=== PATIENT | female | born 1930 | race Caucasian/White ===

== ENCOUNTER 2016-10-06 06:07 | Emergency (ER) | payer MEDICARE, MEDICAID ==
[2016-10-06] MEDS ORDERED: OXYCODONE HCL 5 MG TABLET PO ONE (06:09)
--- NOTE | 2016-10-06 06:23 | EDPRACDOC ---
- General Information Chief Complaint: Shoulder Pain Stated Complaint: FALL Time Seen by Provider: 10/06/16 06:21 Home Medications: Home Medications Artificial Tears 15 ml OD BID 09/09/12 Aspirin [Porter Aspirin] 325 mg PO DAILY 09/09/12 Carbidopa/Levodopa [Sinemet 25-100 mg Tablet] 2 tab PO TID 09/09/12 Clopidogrel Bisulfate [Plavix] 75 mg PO DAILY 09/09/12 Dicyclomine HCl [Bentyl] 10 mg PO ACHS 09/09/12 Ergocalciferol (Vitamin D2) [Vitamin D2] 50,000 unit PO WEEKLY 09/09/12 Ferrous Sulfate [Albafort] 325 mg PO DAILY 09/09/12 Gabapentin Oral Solution [Neurontin] 250 mg PO BID 09/09/12 L. Acidophilus/Strept/LA P-Beni [Risaquad Capsules] 1 cap PO DAILY 09/09/12 Lansoprazole [Prevacid] 30 mg PO DAILY 09/09/12 Levothyroxine Sodium [Synthroid] 50 mcg PO DAILY 09/09/12 Multivitamin with Minerals [Multiple Vitamin] 1 tab PO DAILY 09/09/12 Polyethylene Glycol 3350 [Miralax] 17 gm PO DAILY 09/09/12 Simethicone [Gas-X] 80 mg PO ACHS 09/09/12 Simvastatin 40 mg PO HS 09/09/12 TOPIRAMATE (Anticonvulsant) [Topamax] 25 mg PO HS 09/09/12 Wheat Dextrin/Aspartame [Benefiber Sugar Free Powder] 267 gm PO DAILY(MARCELA) 09/09 Oxycodone HCl/Acetaminophen [Percocet 5-325 mg Tablet] 1 each PO Q4 #20 tablet 10/06/16 Allergies/Adverse Reactions: Allergies Allergy/AdvReac Type Severity Reaction Status Date / Time No Known Allergies Allergy Verified 10/06/16 06:45 - History of Present Illness HPI: PATIENT FELL STRIKING RIGHT SHOULDER. OBVIOUS DEFORMITY AND BRUISING AFTERWARD. 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 negative: Fever, Chills, Weakness, Fatigue, Loss of Appetite Eyes: No Symptoms Reported. negative: Redness, Blurred Vision, Double Vision, Discharge, Pain, Light Sensitive, Photophobia Ears: No Symptoms Reported. negative: Pain, Hearing Loss, Drainage, Ear Pulling Throat: No Symptoms Reported. negative: Pain, Swelling Nose: No Symptoms Reported. negative: Congestion, Bleeding, Discharge, Injection, Swelling, Deformity, Ecchymosis, Tender, Abrasion, Laceration Mouth: No Symptoms Reported. negative: Pain, Drooling Respiratory: No Symptoms Reported. negative: Cough, Brassy Cough, Barky Cough, Shortness of Breath, Wheezing, Hemoptysis Cardiovascular: No Symptoms Reported. negative: Chest Pain, Palpitations, Syncope, Edema, Orthopnea, PND, Skin Mottling, Cyanosis Gastrointestinal: No Symptoms Reported. negative: Pain, Constipation, Nausea, Vomiting, Diarrhea, Melena, Formula Intolerance Genitourinary: No Symptoms Reported. negative: Dysuria, Hematuria, Frequency, Discharge, Bleeding, Testicular Pain, Neurological: No Symptoms Reported. negative: Headache, Dizziness, Seizure, Numbness, Weakness, Speech Difficulty, Gait Difficulty Musculoskeletal: Shoulder. negative: Arm, Ankle, Back, Chestwall, Elbow, Forearm, Femur, Foot, Hand, Hip, Knee, Leg, Neck, Pelvis, Ribs, Wrist Integumentary: No Symptoms Reported. negative: Itching, Rash, Bruising, Wound Allergic/Immunologic: No Symptoms Reported. negative: Hives, Itching Hematologic: No Symptoms Reported. negative: Lymphadenopathy, Easy Bruising, Easy Bleeding Endocrine: No Symptoms Reported. negative: Weight Gain, Weight Loss Psychiatric: No Symptoms Reported. negative: Anxiety, Depression, Hallucinations, Insomnia, Suicidal - Physical Exam Constitutional: Alert (Awake), Distress (MILD) Oriented to: Time, Person, Place Last recorded Vital Signs: Oxygen Pulse Oxygen Saturation O2 Device Oxygen Flow Rate Fraction of Inspired Oxygen ( FIO2) - HEENT Head: Other (FACIAL MASK CONSISTENT WITH PARKINSONS) Eye Exam: Normal (PERRL, EOMI, Sclera white) Oropharynx: Normal (Pharynx:Moist without exudate,Gums-no swelling) Tympanic Membrane: Normal ENT EAC: Normal TMJ: Normal Nose: No Symptoms Reported (septum midline) Neck: Normal (FROM, trachea at midline) - Respiratory/Cardiovascular Respiratory: Normal - CTA (BBS clear to auscultation without adventitious sounds ) Cardiovascular: Normal (RRR without murmur, gallop or rub) - GI Auscultation: Normal (NABS) Palpation: Normal (Soft,No rebound or guarding, non distended) Tenderness: Non tender Lima's Sign: Negative - Musculoskeletal Back: Normal (Non-Tender) Extremities: Normal (Normal tone, Pulses 2+ No cyanosis or edema, FROM) - Integumentary Skin: Normal, Warm, Dry Lymphatics: Normal (no adenopathy) - Neurologic Memory Impaired: Normal Motor Function: Normal (Normal tone, Pulses 2+ No cyanosis or edema, FROM) Cranial Nerve: Normal (CN II-X11 intact sensation, strength 5/5) Cerebellar: Normal Mood Description: Normal Perception: Normal ED Shoulder Problem Exam - Musculoskeletal Clavicle: Normal Shoulder: Swelling, Deformity, Limited ROM, Tender Arm: Normal Distal Function/Circulation: Normal Decision Time to Discharge: 07:55 - Departure Yes I personally saw and evaluated the patient. Disposition: Home Condition: Good Final Diagnosis: Falls Right humeral fracture Qualifiers: Encounter type: initial encounter Humerus Location: proximal Fracture type: closed Fracture morphology: other fracture Fracture alignment: displaced Qualified Code(s): S42.291A - Other displaced fracture of upper end of right humerus, initial encounter for closed fracture Head contusion Qualifiers: Encounter type: initial encounter Contusion of head detail: scalp Qualified Code(s): S00.03XA - Contusion of scalp, initial encounter Instructions: Arm Fracture in Adults (ED) Education/Counseling Given To: Patient Education/Counseling Given Regarding: Diagnosis, Treatment, Prognosis, Follow Up Referrals: Morena Robledo MD [Primary Care Provider] - One Week Vamsi Johnson DO [Staff Physician] - One Week Prescriptions: Oxycodone HCl/Acetaminophen [Percocet 5-325 mg Tablet] 1 each PO Q4 #20 tablet
[2016-10-06] MEDS ORDERED: HYDROmorphone 1 MG INJECTION IV ONE ×2 (06:36→08:12)
[2016-10-06 06:42] VITALS: BMI 23.7
--- NOTE | 2016-10-06 08:23 | DIRPT ---
CLINICAL DATA: Status post fall backward while dressing, with concern for head or cervical spine injury. Initial encounter. EXAM: CT HEAD WITHOUT CONTRAST CT CERVICAL SPINE WITHOUT CONTRAST TECHNIQUE: Multidetector CT imaging of the head and cervical spine was performed following the standard protocol without intravenous contrast. Multiplanar CT image reconstructions of the cervical spine were also generated. COMPARISON: CT of the head and cervical spine performed 12/15/2011, and MRI of the brain performed 07/03/2012 FINDINGS: CT HEAD FINDINGS There is no evidence of acute infarction, mass lesion, or intra- or extra-axial hemorrhage on CT. Prominence of the ventricles and sulci reflects mild cortical volume loss. Mild periventricular white matter change likely reflects small vessel ischemic microangiopathy. Small chronic lacunar infarcts are seen at the basal ganglia bilaterally. The brainstem and fourth ventricle are within normal limits. The cerebral hemispheres demonstrate grossly normal rachel-white differentiation. No mass effect or midline shift is seen. There is no evidence of fracture; visualized osseous structures are unremarkable in appearance. The orbits are within normal limits. There is mild partial opacification of the sphenoid sinus. The remaining paranasal sinuses and mastoid air cells are well-aerated. No significant soft tissue abnormalities are seen. CT CERVICAL SPINE FINDINGS There is no evidence of acute fracture or subluxation. Multilevel disc space narrowing is noted, with scattered anterior and posterior disc osteophyte complexes. There is mild grade 1 retrolisthesis of C4 on C5. Vertebral bodies demonstrate normal height. Prevertebral soft tissues are within normal limits. The thyroid gland is unremarkable in appearance. The visualized lung apices are clear. Dense calcification is noted at the carotid bifurcations bilaterally, with likely severe luminal narrowing on the right side. IMPRESSION: 1. No evidence of traumatic intracranial injury or fracture. 2. No evidence of fracture or subluxation along the cervical spine. 3. Mild cortical volume loss and scattered small vessel ischemic microangiopathy. 4. Small chronic lacunar infarcts at the basal ganglia bilaterally. 5. Mild degenerative change along the cervical spine. 6. Mild partial opacification of the sphenoid sinus. 7. Dense calcification at the carotid bifurcations bilaterally, with likely severe luminal narrowing on the right side. Carotid ultrasound would be helpful for further evaluation, when and as deemed clinically appropriate. Electronically Signed By: Jm Fisher M.D. On: 10/06/2016 08:21
--- NOTE | 2016-10-06 08:27 | DIRPT ---
CLINICAL DATA: Fall EXAM: RIGHT SHOULDER - 2+ VIEW COMPARISON: None. FINDINGS: There is a comminuted fracture involving the proximal humerus at the diaphyseal and metaphysis seal junction. Osteopenia. Clavicle and scapula are grossly intact. There is complete displacement of the larger fracture fragments. No obvious dislocation. IMPRESSION: Comminuted and displaced proximal humerus fracture. Electronically Signed By: Jhony Biswas M.D. On: 10/06/2016 08:24
--- NOTE | 2016-10-06 08:35 | DIRPT ---
CLINICAL DATA: Injury to right upper extremity. Initial encounter. EXAM: RIGHT ELBOW - COMPLETE 3+ VIEW COMPARISON: None. FINDINGS: No evidence of fracture, dislocation or joint effusion involving the right elbow. Soft tissues are unremarkable. Bones are osteopenic. No significant degenerative changes. No evidence of focal bony lesions. IMPRESSION: No acute findings involving the right elbow. Electronically Signed By: Ollie Encinas M.D. On: 10/06/2016 08:32
[2016-10-06 08:37] VITALS: TEMP 98.4
[2016-10-06 08:52] VITALS: BP 129/79; PULSE 76
== END 2016-10-06 09:52 ==
LOC: ED 06:07
DX: S42.291A Other displaced fracture of upper end of right humerus, initial encounter for closed fracture (principal); S00.03XA Contusion of scalp, initial encounter; W19.XXXA Unspecified fall, initial encounter; Y93.9 Activity, unspecified; G20 Parkinson's disease; F02.80 Dementia in other diseases classified elsewhere, unspecified severity, without behavioral disturbance, psychotic disturbance, mood disturbance, and anxiety
CPT/HCPCS: 70450; 72125; 73030; 73080; 96374; 96376; 99284; J1170; J3490